=== PATIENT | male | born 1960 | race Caucasian/White ===

== ENCOUNTER 2020-06-12 22:40 | Emergency (ER) | payer SELFPAY ==
[~2020-06-12] VITALS: Ht 182.9 cm; Wt 87.5 kg
[2020-06-12 22:54] VITALS: BP 162/73
--- NOTE | 2020-06-12 23:03 | NUR ---
PT AMBULATED TO ER BED 01
--- NOTE | 2020-06-12 23:06 | NUR ---
attempt 3x to get IVL pt is hardstick. Hl est g22 on pt rtac infusing well. IVF started. CXR done. medical technologist called to draw bld.
[2020-06-12] MEDS ORDERED: NACL 0.9% 1,000 ML IV ONE (23:10)
--- NOTE | 2020-06-12 23:42 | NUR ---
RECEIVED REPORT FROM LUNCH COVERAGE, ALEXANDER YEH.
--- NOTE | 2020-06-12 23:46 | NUR ---
LAB AT BEDSIDE
[2020-06-13] LABS: BASOPHILS # (AUTO) 0.1 K/uL (0.00-0.22); BASOPHILS % (AUTO) 0.8 % (0.0-2.0); EOSINOPHILS % (AUTO) 0.5 % (0.0-4.0); HEMATOCRIT 43.3 % (36-52); LYMPHOCYTES # (AUTO) 1.6 K/uL (2.0-11.5); LYMPHOCYTES % (AUTO) 19.7 % (20.5-51.1); MEAN CORPUSCULAR HEMOGLOBIN 32 pg (27-31); MEAN CORPUSCULAR HGB CONC 35 g/dL (33-37); MEAN CORPUSCULAR VOLUME 92.4 fL (80-94); MONOCYTES # (AUTO) 0.6 K/uL (0.8-1.0); MONOCYTES % (AUTO) 7.1 % (1.7-9.3); NEUTROPHILS # (AUTO) 5.7 K/uL (1.8-7.7); NEUTROPHILS % (AUTO) 71.9 % (42.2-75.2); PLATELET COUNT (AUTO) 172 K/uL (140-450); RED BLOOD CELL COUNT(AUTO) 4.69 MIL/uL (4.20-6.10); RED CELL DISTRIBUTION WIDTH 12.4 % (11.6-13.7)
[2020-06-13 00:43] LABS: ALBUMIN 3.4 g/dL (3.4-5.0); ANION GAP 17.8 (8-16); CARBON DIOXIDE 22.6 mmol/L (21-32); CREATININE 1.1 mg/dL (0.6-1.3); POTASSIUM 4.4 mmol/L (3.5-5.1); TOTAL BILIRUBIN 0.8 mg/dL (0.0-1.0)
[2020-06-13] MEDS ORDERED: INSULIN REGULAR, HUMAN 100 UNIT/ML VIAL IVP ONE ×3 (01:05→02:50)
--- NOTE | 2020-06-13 01:29 | NUR ---
PT GIVEN TUNA SANDWICH AND ICE WATER
[2020-06-13 02:58] VITALS: BP 163/94
--- NOTE | 2020-06-13 02:59 | NUR ---
Patient discharged with v/s stable. Written and verbal after care instructions given and explained. Patient verbalized understanding. Ambulatory with steady gait. All questions addressed prior to discharge. Advised to follow up with PMD.
== END 2020-06-13 02:59 | disposition home or self-care (01) ==
LOC: MED 22:40
DX: E11.65 Type 2 diabetes mellitus with hyperglycemia (principal); F15.10 Other stimulant abuse, uncomplicated; F12.90 Cannabis use, unspecified, uncomplicated
CPT/HCPCS: 36415; 36600; 71045; 80053; 82803; 85025; 96361; 96374; 96375; 96376; 99284; J1815; J7030

== ENCOUNTER 2020-06-18 10:00 | Inpatient (IN) | payer MEDICAID ==
[~2020-06-18] VITALS: Ht 182.9 cm; Wt 86.2 kg
[2020-06-18 10:02] VITALS: BP 133/95
[2020-06-18] MEDS ORDERED: NACL 0.9% 1,000 ML IV ONE (10:20)
--- NOTE | 2020-06-18 10:39 | NUR ---
59 YO MALE C/O HYPERGLYCEMIA SINCE [place]. SEEN HERE 5 DAYS AGO SAME S/S. BLOOD SUGAR 481 AT THIS TIME. RUN OUT OF INSULIN 1 MONTH. MED HX: DM
--- NOTE | 2020-06-18 10:40 | NUR ---
SUPERVISOR COLD ROLLING [facility]O LABS AND TAKEN TO LAB
--- NOTE | 2020-06-18 10:45 | NUR ---
EMT PERFORMING EKG AT THIS TIME
[2020-06-18 10:52] LABS: APPEARANCE,URINE CLEAR (CLEAR); BILIRUBIN,URINE NEGATIVE (NEGATIVE); BLOOD, URINE NEGATIVE (NEGATIVE); COLOR,URINE YELLOW (YELLOW); LEUKOCYTE ESTERASE ,URINE NEGATIVE (NEGATIVE); NITRITE, URINE NEGATIVE (NEGATIVE); UGLUCOSE 3+ (NEGATIVE)
[2020-06-18 10:52] LABS: BASOPHILS # (AUTO) 0.1 K/uL (0.00-0.22); BASOPHILS % (AUTO) 0.6 % (0.0-2.0); EOSINOPHILS # (AUTO) 0.1 K/uL (0-0.4); EOSINOPHILS % (AUTO) 0.7 % (0.0-4.0); HEMATOCRIT 48.8 % (36-52); HEMOGLOBIN 17.3 g/dL (12.0-18.0); LYMPHOCYTES # (AUTO) 1.5 K/uL (2.0-11.5); LYMPHOCYTES % (AUTO) 17.5 % (20.5-51.1); MEAN CORPUSCULAR HEMOGLOBIN 33 pg (27-31); MEAN CORPUSCULAR HGB CONC 36 g/dL (33-37); MEAN CORPUSCULAR VOLUME 92.6 fL (80-94); MONOCYTES # (AUTO) 0.5 K/uL (0.8-1.0); MONOCYTES % (AUTO) 5.6 % (1.7-9.3); NEUTROPHILS # (AUTO) 6.6 K/uL (1.8-7.7); NEUTROPHILS % (AUTO) 75.6 % (42.2-75.2); PLATELET COUNT (AUTO) 170 K/uL (140-450); RED BLOOD CELL COUNT(AUTO) 5.27 MIL/uL (4.20-6.10); RED CELL DISTRIBUTION WIDTH 12.3 % (11.6-13.7); WHITE BLOOD COUNT (AUTO) 8.7 K/uL (4.8-10.8)
[2020-06-18 11:14] LABS: ALBUMIN 3.9 g/dL (3.4-5.0); ANION GAP 18.1 (8-16); CARBON DIOXIDE 22.5 mmol/L (21-32); POTASSIUM 4.6 mmol/L (3.5-5.1); TOTAL BILIRUBIN 1.6 mg/dL (0.0-1.0)
[2020-06-18] MEDS ORDERED: INSULIN REGULAR, HUMAN 100 UNIT/ML VIAL IVP ONE (11:25)
[2020-06-18] MEDS: NACL 0.9% 1,000 ML IV SCH ×3 (11:43→21:01)
[2020-06-18] MEDS ORDERED: DOCUSATE SODIUM 100 MG GELCAP PO PRN (11:45)
[2020-06-18] MEDS ORDERED: ONDANSETRON 4 MG/2 ML VIAL IM/IVP PRN (11:45)
[2020-06-18] MEDS ORDERED: ZOLPIDEM 5 MG TAB PO PRN (11:45)
[2020-06-18] MEDS ORDERED: POTASSIUM CHLORIDE 10 MEQ TABER PO PRN (11:45)
[2020-06-18] MEDS ORDERED: ACETAMINOPHEN 325 MG TAB PO PRN (11:45)
[2020-06-18] MEDS ORDERED: guaiFENesin DM 200/20 MG-10 ML 10 ML UDC PO PRN (11:45)
[2020-06-18 12:15] LABS: CHOL/HDL RATIO 2.8 (1-4.5); FREE T4 (FREE THYROXINE) 1.49 ng/dL (0.76-1.46); MAGNESIUM 1.9 mg/dL (1.8-2.4); PHOSPHORUS 3.9 mg/dL (2.5-4.9); THYROID STIMULATING HORMONE 0.48 uIU/mL (0.34-3.74)
[2020-06-18] MEDS ORDERED: DEXTROSE 50% 50 ML SYR IVP PRN (12:15)
[2020-06-18] MEDS: glipiZIDE ER 5 MG TABER PO SCH (12:15)
[2020-06-18] MEDS: metFORMIN 500 MG TAB PO SCH ×2 (12:30→17:30)
[2020-06-18 12:33] LABS: PROTHROMBIN TIME 10.1 secs (10.8-13.4)
--- NOTE | 2020-06-18 12:58 | NUR ---
Patient will be admitted to care of DR SANTOS. Admited to M/S. Will go to room 106A. Belongings list completed. Report to RAO ULLOA.
[2020-06-18 13:00] VITALS: BP 145/74
--- NOTE | 2020-06-18 13:00 | NUR ---
RECEIVED BEDSIDE REPORT FROM ED NURSE. PT RESTING IN BED. ABLE TO MAKE NEEDS KNOWN. RESPIRATIONS EVEN AND UNLABORED WITH NO SOB OR RESPIRATORY DISTRESS. SKIN WARM AND DRY TO TOUCH. IV SITE IN R WRIST 24G IS CLEAN, DRY, AND INTACT. MRSA SWAB COLLECTED AND SENT TO LAB. SAFETY MEASURES IN PLACE. WILL CONTINUE TO MONITOR
--- NOTE | 2020-06-18 13:45 | NUR ---
ADMINISTERED SCHED MED PRESCRIBED PER MD ORDER. PT TOLERATED WELL. MEDICATION EDUCATION PERFORMED. PT VERBALIZED UNDERSTANDING. SAFETY MEASURES IN PLACE. WILL CONTINUE TO MONITOR
--- NOTE | 2020-06-18 15:30 | NUR ---
PT CALLED AND ASKED FOR A SNACK. GAVE PATIENT SUGAR FREE JELLO. PT TOLERATED WELL. SAFETY MEASURES IN PLACE. WILL CONTINUE TO MONITOR
[2020-06-18 16:00] VITALS: BP 129/90
--- NOTE | 2020-06-18 16:15 | NUR ---
OBTAINED RANDOM SODIUM URINE PRESCRIBED PER MD ORDER. SPECIMEN SENT TO LAB. PT TOLERATED WELL. SAFETY MEASURE IN PLACE WILL CONTINUE TO MONITOR. Addendum: 06/18/20 at 1800 by Araceli Torres RN WRONG ENTRY. DISREGARD NOTE
--- NOTE | 2020-06-18 16:30 | NUR ---
PT BLOOD SUGAR IS 268. PRN INSULIN WILL BE ADMINISTERED PRESCRIBED PER MD ORDER. SAFETY MEASURES IN PLACE. WILL CONTINUE TO MONITOR
[2020-06-18 17:10] LABS: BARBITURATE, URINE NEGATIVE ng/ml (NEG <=200); BENZODIAZEPINE, URINE NEGATIVE ng/mL (NEG <=200); CANNABINOID, URINE POSITIVE ng/mL (NEG <=50); COCAINE, URINE NEGATIVE ng/mL (NEG <=300); OPIATE, URINE NEGATIVE ng/mL (NEG <=2000); PHENCYCLIDINE SCREEN,URINE NEGATIVE ng/mL (NEG <=25)
[2020-06-18] MEDS: BLOOD GLUCOSE MONITORING 1 DEV DEV FS SCH ×2 (17:28→20:33)
[2020-06-18] MEDS: INSULIN LISPRO SLIDING SCALE 100 UNITS/ML VIAL SUBQ PRN ×2 (17:30→20:36)
--- NOTE | 2020-06-18 17:30 | NUR ---
ADMINISTERED SCHED MED PRESCRIBED PER MD ORDER. PT TOLERATED WELL. MEDICATION EDUCATION PERFORMED. PT VERBALIZED UNDERSTANDING. SAFETY MEASURES IN PLACE. WILL CONTINUE TO MONITOR
--- NOTE | 2020-06-18 19:10 | NUR ---
RECEIVED BEDSIDE REPORT FROM DAY SHIFT NURSE FOR CONTINUITY OF CARE. PLAN OF CARE WAS DISCUSSED. PT IS A&O X 4. AWAKE AND ALERT. LAYING IN SUPINE POSITION. ON RA, BREATHING IS UNLABORED. LUNG SOUNDS ARE CLEAR IN ALL LOBES BILATERALLY. BOWEL SOUNDS ARE PRESENT IN ALL QUADRANTS. SKIN IS WARM, DRY, AND INTACT. LAST BM WAS 06/18/20 PER DAY SHIFT NURSE. IV IS PATENT AND INTACT. IV IS AT THE RIGHT WRIST 24 GAUGE RUNNING NS AT 135 ML PER HOUR PER ORDER. PT IS STABLE AT THIS TIME. BED IS IN THE LOWEST POSITION AND CALL LIGHT IS WITHIN REACH.
--- NOTE | 2020-06-18 21:00 | NUR ---
BS READING WAS 313 AND PT RECEIVED 8 UNITS OF HUMALOG PER SLIDING SCALE. PT ALSO RECEIVED SUGAR FREE SNACKS REQUESTED. PT IS AWAKE AND STABLE AT THIS TIME.
--- NOTE | 2020-06-18 23:00 | NUR ---
PT IS ASLEEP. IV FLUIDS ARE RUNNING AT 135 ML PER HOUR PER ORDER. IV IS PATENT AND INTACT. CHEST RISE AND FALL IS SYMMETRICAL. NO DISTRESS NOTED.
[2020-06-19] VITALS: BP 148/97
--- NOTE | 2020-06-19 01:25 | NUR ---
PT IS SITTING AT BEDSIDE, WATCHING TV ON CELL PHONE. NO COMPLAINTS FROM THE PT. NO SIGNS OF HYPERGLYCEMIA. PT IS COMFORTABLE AND ALL NEEDS ARE MET.
[2020-06-19] MEDS: HYDROcodone/APAP 7.5/325 MG 1 TAB PO PRN (03:17)
--- NOTE | 2020-06-19 03:17 | NUR ---
PT WAS COMPLAINING OF PAIN IN THE LOWER EXTREMITIES WITH AN ACHING FEELING. PAIN LEVEL WAS 5/10. PT RECEIVED NORCO PRN. WILL MONITOR PAIN.
--- NOTE | 2020-06-19 04:15 | NUR ---
ROUNDED ON PT TO REASSESS PAIN. PT IS ASLEEP. NO PAIN AT THIS TIME. IV FLUIDS ARE RUNNING. CALL LIGHT IS WITHIN REACH.
[2020-06-19] MEDS: NACL 0.9% 1,000 ML IV SCH ×2 (04:26→17:28)
[2020-06-19] MEDS: BLOOD GLUCOSE MONITORING 1 DEV DEV FS SCH ×4 (06:00→21:39)
[2020-06-19 06:06] LABS: BASOPHILS % (AUTO) 0.5 % (0.0-2.0); EOSINOPHILS # (AUTO) 0.1 K/uL (0-0.4); EOSINOPHILS % (AUTO) 1.2 % (0.0-4.0); HEMATOCRIT 44.4 % (36-52); HEMOGLOBIN 15.7 g/dL (12.0-18.0); LYMPHOCYTES # (AUTO) 1.5 K/uL (2.0-11.5); LYMPHOCYTES % (AUTO) 20.2 % (20.5-51.1); MEAN CORPUSCULAR HEMOGLOBIN 33 pg (27-31); MEAN CORPUSCULAR HGB CONC 35 g/dL (33-37); MEAN CORPUSCULAR VOLUME 92.4 fL (80-94); MONOCYTES # (AUTO) 0.4 K/uL (0.8-1.0); MONOCYTES % (AUTO) 5.6 % (1.7-9.3); NEUTROPHILS # (AUTO) 5.4 K/uL (1.8-7.7); NEUTROPHILS % (AUTO) 72.5 % (42.2-75.2); PLATELET COUNT (AUTO) 158 K/uL (140-450); RED BLOOD CELL COUNT(AUTO) 4.81 MIL/uL (4.20-6.10); RED CELL DISTRIBUTION WIDTH 12.5 % (11.6-13.7); WHITE BLOOD COUNT (AUTO) 7.4 K/uL (4.8-10.8)
[2020-06-19] MEDS: INSULIN LISPRO SLIDING SCALE 100 UNITS/ML VIAL SUBQ PRN ×5 (06:19→21:40)
--- NOTE | 2020-06-19 06:21 | NUR ---
BS READING WAS 282. HUMALOG PER SLIDING SCALE WAS ADMINISTERED, 6 UNITS. PT IS BACK TO SLEEP AT THIS TIME.
[2020-06-19 07:05] LABS: ANION GAP 16.2 (8-16); CARBON DIOXIDE 22.1 mmol/L (21-32); CREATININE 0.8 mg/dL (0.6-1.3); POTASSIUM 4.3 mmol/L (3.5-5.1)
--- NOTE | 2020-06-19 07:10 | NUR ---
ENDORSED PT TO DAY SHIFT NURSE FOR CONTINUITY OF CARE. PT IS STABLE AT THIS TIME. PLAN OF CARE WAS DISCUSSED.
--- NOTE | 2020-06-19 07:15 | NUR ---
RECEIVED BEDSIDE REPORT FROM NIGHTSHIFT NURSE. PT RESTING IN BED. ABLE TO MAKE NEEDS KNOWN. RESPIRATIONS EVEN AND UNLABORED WITH NO SOB OR RESPIRATORY DISTRESS. SKIN WARM AND DRY TO TOUCH. IV SITE IN R WRIST 24G IS CLEAN, DRY, AND INTACT. SAFETY MEASURES IN PLACE. WILL CONTINUE TO MONITOR
[2020-06-19 08:00] VITALS: BP 139/74
[2020-06-19] MEDS: glipiZIDE ER 5 MG TABER PO SCH (08:00)
[2020-06-19] MEDS: metFORMIN 500 MG TAB PO SCH ×2 (08:00→17:06)
[2020-06-19] MEDS ORDERED: INSULIN LANTUS 100 UNITS/ML 10 ML VIAL SUBQ SCH (09:00)
--- NOTE | 2020-06-19 09:09 | NUR ---
PATIENT HAS BEEN SCREENED AND CATEGORIZED MODERATE NUTRITION RISK. PATIENT WILL BE SEEN WITHIN 3-5 DAYS OF ADMISSION. 06/20/20 06/22/[address]
[2020-06-19] MEDS: PANTOPRAZOLE 40 MG TABEC PO SCH (09:12)
--- NOTE | 2020-06-19 09:40 | NUR ---
PT BLOOD SUGAR IS 450. PAGED DR. SANTOS AND WAS VERBALLY TOLD TO GIVE 12 UNITS OF HUMALOG ALONG WITH SCHED LANTUS. ADMINISTERED SCHED MED PRESCRIBED PER MD ORDER. PT TOLERATED WELL. MEDICATION EDUCATION PERFORMED. PT VERBALIZED UNDERSTANDING. SAFETY MEASURES IN PLACE. WILL CONTINUE TO MONITOR
--- NOTE | 2020-06-19 11:30 | NUR ---
PT BLOOD SUGAR IS 318. PRN HUMALOG WILL BE ADMINISTERED WITH NEXT MEAL. SAFETY MEASURES IN PLACE. WILL CONTINUE TO MONITOR
--- NOTE | 2020-06-19 11:38 | NUR ---
ADMINISTERED SCHED MED PRESCRIBED PER MD ORDER. PT TOLERATED WELL. MEDICATION EDUCATION PERFORMED. PT VERBALIZED UNDERSTANDING. SAFETY MEASURES IN PLACE. WILL CONTINUE TO MONITOR
--- NOTE | 2020-06-19 11:43 | NUR ---
INFANT BABYSITTER NOTE: Patient's Orientation Person Situation Place Time Information Provided By PATIENT Comments SW CONTACTED PATIENT'S ROOM PHONE AND COMPLETED ASSESSMENT TELEPHONICALLY. Wool Shearing Supervisor, Realtionship and Phone Number GAIL PAVON FRIEND [phone] (CORRECTION FROM FACE SHEET) PING GUY DAUGHTER [phone] Healthcare Power of [employer] Report Developer No Does Patient Have a POLST No Identifying Problems No Social Work Triggers Is A Social Work Consult Needed No Mandate Report Filed No Explanation Of Identifying Problems PATIENT IS A 59-YEAR-OLD MALE ADMITTED FOR HYPOGLYCEMIA. PATIENT HAS PMHX OF DIABETES. Admitted From Home Pre-Admission Level Of Functioning Status Independent/Ambulatory Prior Resources/Services Used In Last 12 Months No Prior Resources Used Prior DME No Prior DME Used Living Situation Lives With Friend/Other House Patient Had Caregiver No Home Support No Caregiver Issues Financial Issues No Known Financial Issue Referral To The Financial Counselor Needed No Factors/Needs No D/C Needs Identified Pt/Rep Participated In Discharge Plan Yes Patient/Family Agress With Discharge Plan Yes Discharge Plan Comments TENTATIVE DISCHARGE PLAN IS FOR PATIENT TO GO TO DAUGHTER PING GUY'S HOUSE IN [place] AND LEAVE FOR [place] THEREAFTER. DC Plan Status Initiated
--- NOTE | 2020-06-19 12:29 | NUR ---
DC PLANNING 59 YRS OLD MALE PATIENT WAS ADMITTED FROM HOME WITH A DX OF HYPERGLYCEMIA , UNCONTROLLED DM BLOOD GLUCOSE WAS 474 ON ADMISSION. PT HAS A HX OF DM. ADMINISTERED REGULAR INSULIN AND CONTINUE HOME MEDS LANTUS INSULIN . ON IVF FOR HYDRATION. DC PLAN TO EDUCATE PATIENT WITH DIABETIC EDUCATION AND MEDICATION. DC PLAN TO GO HOME WHEN STABLE CM TO FOLLOW . Addendum: 06/22/20 at 09 by Kathy Lee CM CONTACTED PATIENTS INSURANCE [employer] [facility] [phone]. SPOKE CONDUIT WORKER DOMINIQUE. PATIENTS PCP IS DR. ARIAS [phone]. [facility]: [id number] [place] [id number] Addendum: 06/22/20 at 0916 by Kathy Lee CM PROVIDED PATIENT WITH PCP INFORMATION Addendum: 06/22/20 at 1127 by Kathy Lee CM CALLED TO SCHEDULE PATIENT A FOLLOW UP APPOINTMENT WITH PCP DR. ARIAS. THIS IS A NEW PATIENT SO THEY ARE ASKING FOR HIM ONCE HE RETURNS TO [place] TO STOP BY THE OFFICE TO REGISTER BEFORE THEY CAN SCHEDULE HIM AN APPOINTMENT
--- NOTE | 2020-06-19 12:40 | NUR ---
PT CALLED AND SAID THAT IV PUMP WAS BEEPING. IV SITE IN R WRIST 24G IS NO LONGER WORKING PROPERLY. NOT ABLE TO FLUSH OR GET BLOOD RETURN. NEW IV STARTED IN LFA 24G IS CLEAN DRY, AND INTACT. SAFETY MEASURES IN PLACE. WILL CONTINUE TO MONITOR
--- NOTE | 2020-06-19 13:44 | NUR ---
HOURLY ROUNDING PT RESTING IN BED. ABLE TO MAKE NEEDS KNOWN. RESPIRATIONS EVEN AND UNLABORED WITH NO SOB OR RESPIRATORY DISTRESS. SKIN WARM AND DRY TO TOUCH. SAFETY MEASURES IN PLACE. WILL CONTINUE TO MONITOR
--- NOTE | 2020-06-19 15:38 | NUR ---
HOURLY ROUNDING. PT RESTING IN BED. ABLE TO MAKE NEEDS KNOWN. RESPIRATIONS EVEN AND UNLABORED WITH NO SOB OR RESPIRATORY DISTRESS. SKIN WARM AND DRY TO TOUCH. SAFETY MEASURES IN PLACE. WILL CONTINUE TO MONITOR
[2020-06-19 16:00] VITALS: BP 143/80
--- NOTE | 2020-06-19 16:30 | NUR ---
PT BLOOD SUGAR IS 243. PRN INSULIN WILL BE ADMINISTERED WITH NEXT MEAL. SAFETY MEASURES IN PLACE. WILL CONTINUE TO MONITOR
--- NOTE | 2020-06-19 17:15 | NUR ---
ADMINISTERED SCHED MED PRESCRIBED PER MD ORDER. PT TOLERATED WELL. MEDICATION EDUCATION PERFORMED. PT VERBALIZED UNDERSTANDING. SAFETY MEASURES IN PLACE. WILL CONTINUE TO MONITOR
--- NOTE | 2020-06-19 19:10 | NUR ---
ENDORSED AT BEDSIDE TO NIGHTSHIFT NURSE FOR CONTINUITY OF CARE. PT IS STABLE
--- NOTE | 2020-06-20 | NUR ---
VSS. PT FOUND LYING ON SIDE ON FLOOR NEXT TO BED. REPORTS HE WAS STANDING UP TO URINATE IN URINAL WHEN HE FELT HIS KNEES BUCKLE FROM UNDER HIM. REPORTS LT THUMB NUMBNESS/WEAKNESS. VISION CHANGES REPORTED FLASHING BRIGHT STARS. WILL CONT TO MONITOR PT STATUS. MD NOTIFIED. OBTAINED ORDERS. TELE MONITOR NSR RATE 68. CT SCAN HEAD STAT ORDERED. SENT TO CT SCAN ORDERED.
--- NOTE | 2020-06-20 00:19 | NUR ---
PT RETURNED FROM CT HEAD W/OUT CONTRAST STAT. PT NO LONGER REPORTING LT THUMB NUMBNESS. VISION CHANGES STILL PRESENT BUT IMPROVING. VSS. NO H/A. NO N/V. SR ON TELE. WILL CONT TO MONITOR PT STATUS.
[2020-06-20] MEDS: NACL 0.9% 1,000 ML IV SCH ×4 (00:41→23:31)
[2020-06-20 00:53] VITALS: BP 154/99
[2020-06-20 06:24] LABS: ANION GAP 16.6 (8-16); CARBON DIOXIDE 22.3 mmol/L (21-32); CREATININE 0.8 mg/dL (0.6-1.3); POTASSIUM 3.9 mmol/L (3.5-5.1)
[2020-06-20 06:30] LABS: BASOPHILS % (AUTO) 0.2 % (0.0-2.0); EOSINOPHILS # (AUTO) 0.1 K/uL (0-0.4); EOSINOPHILS % (AUTO) 0.7 % (0.0-4.0); HEMATOCRIT 46.2 % (36-52); HEMOGLOBIN 16.1 g/dL (12.0-18.0); LYMPHOCYTES # (AUTO) 1.3 K/uL (2.0-11.5); LYMPHOCYTES % (AUTO) 15.6 % (20.5-51.1); MEAN CORPUSCULAR HEMOGLOBIN 33 pg (27-31); MEAN CORPUSCULAR HGB CONC 35 g/dL (33-37); MEAN CORPUSCULAR VOLUME 93.2 fL (80-94); MONOCYTES # (AUTO) 0.5 K/uL (0.8-1.0); NEUTROPHILS # (AUTO) 6.7 K/uL (1.8-7.7); NEUTROPHILS % (AUTO) 77.5 % (42.2-75.2); PLATELET COUNT (AUTO) 160 K/uL (140-450); RED BLOOD CELL COUNT(AUTO) 4.96 MIL/uL (4.20-6.10); RED CELL DISTRIBUTION WIDTH 12.3 % (11.6-13.7); WHITE BLOOD COUNT (AUTO) 8.6 K/uL (4.8-10.8)
[2020-06-20] MEDS: INSULIN LISPRO SLIDING SCALE 100 UNITS/ML VIAL SUBQ PRN ×4 (06:34→21:34)
[2020-06-20] MEDS: BLOOD GLUCOSE MONITORING 1 DEV DEV FS SCH ×4 (06:34→21:29)
--- NOTE | 2020-06-20 07:10 | NUR ---
RECEIVED REPORT FROM PM RNKRIS. PT C/O: HYPERGLYCEMIA. DX: UNCONTROLLED DM AND HYPERGLYCEMIA. HX: CM, HTN. NKA. FULL CODE. A&OX4. LUNG SOUNDS CLEAR. NORMAL SINUS RHYTHM. LT FA 24G RUNNING NS 145. NKA. DIET: CCHO 60G. RA. SKIN IS INTACT. 629 BS: 257, 6 UNITS GIVEN. PLAN: DIGITAL FORENSICS EXAMINER CONSULT, MONITOR BS.
[2020-06-20 08:00] VITALS: BP 134/86
[2020-06-20] MEDS: PANTOPRAZOLE 40 MG TABEC PO SCH (08:46)
[2020-06-20] MEDS: glipiZIDE ER 5 MG TABER PO SCH (08:46)
[2020-06-20] MEDS: metFORMIN 500 MG TAB PO SCH ×2 (08:46→17:28)
--- NOTE | 2020-06-20 08:50 | NUR ---
GAVE PAIN MED. PTS PAIN WAS 7/10.
[2020-06-20] MEDS: HYDROcodone/APAP 7.5/325 MG 1 TAB PO PRN (08:59)
[2020-06-20] MEDS: INSULIN LANTUS 100 UNITS/ML 10 ML VIAL SUBQ SCH (09:00)
--- NOTE | 2020-06-20 09:00 | NUR ---
PASSED MEDICATIONS TO PT. PT TOLERATED WELL
--- NOTE | 2020-06-20 11:30 | NUR ---
BLOOD SUGAR: 320, [address] PT ON BED ALARM. WRIST BAND APPLIED FOR FALL PREVENTION
[2020-06-20 16:00] VITALS: BP 165/98
--- NOTE | 2020-06-20 16:30 | NUR ---
BLOOD SUGAR 224, 4 UNITS GIVEN
--- NOTE | 2020-06-20 17:30 | NUR ---
NEW IV PLACEMENT. 20G LT UPPER ARM
--- NOTE | 2020-06-20 19:14 | NUR ---
TRANSFER OF CARE TO THE PM RNGUILHERME. PT IS STABLE. VS STABLE. NO SIGNS OF DISTRESS.
[2020-06-20] MEDS: GABAPENTIN 100 MG CAP PO SCH (21:29)
[2020-06-21] VITALS: BP 128/85
[2020-06-21] MEDS: NACL 0.9% 1,000 ML IV SCH ×3 (05:50→22:13)
[2020-06-21 06:42] LABS: BASOPHILS % (AUTO) 0.7 % (0.0-2.0); EOSINOPHILS # (AUTO) 0.1 K/uL (0-0.4); EOSINOPHILS % (AUTO) 1.8 % (0.0-4.0); HEMATOCRIT 43.5 % (36-52); HEMOGLOBIN 15.2 g/dL (12.0-18.0); LYMPHOCYTES # (AUTO) 1.6 K/uL (2.0-11.5); LYMPHOCYTES % (AUTO) 25.6 % (20.5-51.1); MEAN CORPUSCULAR HEMOGLOBIN 32 pg (27-31); MEAN CORPUSCULAR HGB CONC 35 g/dL (33-37); MEAN CORPUSCULAR VOLUME 92.3 fL (80-94); MONOCYTES # (AUTO) 0.5 K/uL (0.8-1.0); MONOCYTES % (AUTO) 8.2 % (1.7-9.3); NEUTROPHILS # (AUTO) 3.9 K/uL (1.8-7.7); NEUTROPHILS % (AUTO) 63.7 % (42.2-75.2); PLATELET COUNT (AUTO) 161 K/uL (140-450); RED BLOOD CELL COUNT(AUTO) 4.71 MIL/uL (4.20-6.10); RED CELL DISTRIBUTION WIDTH 12.3 % (11.6-13.7); WHITE BLOOD COUNT (AUTO) 6.2 K/uL (4.8-10.8)
[2020-06-21] MEDS: BLOOD GLUCOSE MONITORING 1 DEV DEV FS SCH ×4 (06:43→21:26)
[2020-06-21] MEDS: INSULIN LISPRO SLIDING SCALE 100 UNITS/ML VIAL SUBQ PRN ×4 (06:44→21:28)
[2020-06-21 07:05] LABS: ANION GAP 13.4 (8-16); CARBON DIOXIDE 24.3 mmol/L (21-32); CREATININE 0.7 mg/dL (0.6-1.3); POTASSIUM 3.7 mmol/L (3.5-5.1)
[2020-06-21] MEDS: glipiZIDE ER 5 MG TABER PO SCH (07:34)
[2020-06-21] MEDS: metFORMIN 500 MG TAB PO SCH ×4 (07:34→16:51)
[2020-06-21 08:11] VITALS: BP 124/82
[2020-06-21] MEDS ORDERED: INSULIN LANTUS 100 UNITS/ML 10 ML VIAL SUBQ SCH ×2 (09:00→17:00)
[2020-06-21] MEDS: INSULIN LANTUS 100 UNITS/ML 10 ML VIAL SUBQ SCH (09:04)
[2020-06-21] MEDS: PANTOPRAZOLE 40 MG TABEC PO SCH (09:05)
[2020-06-21 16:25] VITALS: BP 133/93
--- NOTE | 2020-06-21 18:34 | NUR ---
CHANGES ON DM REGIMEN STARTED TODAY. PATIENT VERBALLY EDUCATED ON WAYS TO MANAGE DIABETES, VERBALIZED UNDERSTANDING. PER PATIENT " I KNOW NOW HOW TO GET PCP, I HAVE TO CALL MY INSURANCE AND THEY WILL SEND ME LISTS OF DOCTORS FOR ME TO CHOOSE." ANTICIPATE DC TOMORROW IF BLOOD SUGAR IS CONTROLLED.
--- NOTE | 2020-06-21 19:05 | NUR ---
RECD. RESTING IN BED, AWAKE, A/OX4. WATCHING TV. RESPIRATION EVEN AND UNLABORED. IV OF NS AT 135 ML/HR INFUSING, LEFT FOREARM G22. INDEPENDENT, ABLE TO VERBALIZED NEEDS. USES THE URINAL. PLAN OF CARE FOR THE SHIFT DISCUSSED. VERBALIZED UNDERSTANDING. DENIES PAIN 0/10.
--- NOTE | 2020-06-21 20:30 | NUR ---
SLEEPING COMFORTABLY IN BED.
[2020-06-21] MEDS: GABAPENTIN 100 MG CAP PO SCH (21:25)
--- NOTE | 2020-06-21 21:26 | NUR ---
SNACK GIVEN FOR THE NIGHT, ATE 100%.
--- NOTE | 2020-06-21 22:20 | NUR ---
SITTING ON BED, WATCHING TV.
--- NOTE | 2020-06-21 22:25 | NUR ---
ENDORSED TO RAO PASTRANA FOR CONTINUITY OF CARE.
--- NOTE | 2020-06-21 22:30 | NUR ---
RECEIVED REPORT FROM LETITIA ROCHA AT BEDSIDE FOR CONTINUITY OF CARE, PT IN BED ASLEEP NO S/S OF PAIN OR DISTRESS NOTED IV SITE INTACT AND RUNNING FLUIDS ORDERED.
[2020-06-22] VITALS: BP 140/76
--- NOTE | 2020-06-22 04:00 | NUR ---
PT IN BED ASLEEP BUT AROUSABLE TO NAME AND LIGHT TOUCH. IV SITE INTACT AND RUNNING NORMAL SALINE AT 135. V/S FOLLOWS: T 97.0 P 70 R 20 B/P 141/95 02 98% ON ROOM AIR. ALL FALLS PRECAUTIONS IN PLACE AND ALL REQUESTED NEEDS ATTENDED.
[2020-06-22] MEDS: NACL 0.9% 1,000 ML IV SCH ×2 (04:43→12:08)
[2020-06-22] MEDS: INSULIN LISPRO SLIDING SCALE 100 UNITS/ML VIAL SUBQ PRN (06:46)
[2020-06-22] MEDS: BLOOD GLUCOSE MONITORING 1 DEV DEV FS SCH ×2 (06:49→11:53)
--- NOTE | 2020-06-22 07:20 | NUR ---
SHIFT REPORT RECEIVED FROM CHEMISTRY LABORATORY TECHNICIAN NURSE. PT IS AWAKE AND RESPONSIVE IN BED. IV IN PLACE. PT SAYS IS HUNGRY. VITAL SIGNS NORMAL PT ON ROOM AIR. LUNGS CLEAR. WILL CONTINUE TO MONITOR. CALL LIGHT IN REACH.
[2020-06-22] MEDS ORDERED: GABA-636 PO (07:45)
[2020-06-22] MEDS ORDERED: LANTUS SUBQ (07:45)
[2020-06-22] MEDS ORDERED: GLUXL5 PO (07:45)
[2020-06-22] MEDS ORDERED: PANT40EC28 PO (07:45)
[2020-06-22] MEDS ORDERED: METF500T PO (07:45)
[2020-06-22] MEDS ORDERED: ATOR20TA PO (07:48)
[2020-06-22] MEDS ORDERED: LISI5TAB18 PO (07:48)
[2020-06-22 08:00] VITALS: BP 135/92
[2020-06-22] MEDS ORDERED: glipiZIDE ER 5 MG TABER PO SCH (08:00)
[2020-06-22] MEDS: metFORMIN 500 MG TAB PO SCH ×2 (09:26→12:16)
[2020-06-22] MEDS: PANTOPRAZOLE 40 MG TABEC PO SCH (09:26)
[2020-06-22] MEDS: INSULIN LISPRO 100 UNITS/ML VIAL SUBQ SCH ×2 (09:28→12:21)
[2020-06-22] MEDS: INSULIN LANTUS 100 UNITS/ML 10 ML VIAL SUBQ SCH (09:29)
--- NOTE | 2020-06-22 09:30 | NUR ---
MORNING MEDS GIVEN TO PT . NOTED WITH BLOOD SUGAR OF 347. INSULIN LANTUS AND LISPRO GIVEN TO PT. NO DISTRESS NO COMPLAINS OF PAIN. IV IN PLACE. BED IN LOW POSITION. PT AWAKE AND COOPERATIVE. WILL CONTINUE TO MONITOR. CALL LIGHT IN REACH.
--- NOTE | 2020-06-22 12:00 | NUR ---
BLOOD SUGAR AT 268. INSULIN GIVEN. NO DISTRESS. WILL CONTINUE TO MONITOR.
--- NOTE | 2020-06-22 13:07 | NUR ---
PT WAS D/C TODAY TO HOME. PT DID NOT GET A RIDE HOME. GAVE HIM A BUS PASS.DISCHARGE INSTRUCTIONS GIVEN TO PT. MEDS SENT TO PHARMACY. SKIN INTACT. ID AND IV REMOVED. NO BLEEDING. MED INSTRUCTIONS GIVEN TO PT. PRESCRIPTION GIVEN TO PT. PT WILL F/U WITH PCP UPON D/C.PT STABLE AT D/C. NO COMPLAINS OF PAIN OR DISTRESS NOTED. TAKEN IN WHEEL CHAIR TO EXIT. PT WAS GIVEN SHIRT AND PANTS.
== END 2020-06-22 13:05 | disposition home or self-care (01) | DRG 420 ==
LOC: MED 10:00 → MTU 11:43
PROVIDERS: ADMIT Family Medicine; ATTEND Family Medicine
DX: E11.00 Type 2 diabetes mellitus with hyperosmolarity without nonketotic hyperglycemic-hyperosmolar coma (NKHHC) (principal); E87.1 Hypo-osmolality and hyponatremia; R74.0 Nonspecific elevation of levels of transaminase and lactic acid dehydrogenase [LDH]; R35.0 Frequency of micturition; Z72.0 Tobacco use; Z82.49 Family history of ischemic heart disease and other diseases of the circulatory system; G93.41 Metabolic encephalopathy; Z83.3 Family history of diabetes mellitus; Z91.19 Patient's noncompliance with other medical treatment and regimen; M51.86 Other intervertebral disc disorders, lumbar region; M85.80 Other specified disorders of bone density and structure, unspecified site
CPT/HCPCS: 36415; 36600; 70450; 71045; 72110; 80048; 80053; 80305; 81003; 82150; 82803; 82948; 83036; 83690; 83735; 83880; 84100; 84436; 84439; 84443; 84479; 84484; 85025; 85610; 85730; 87081; 93005; 96361; 96374; 97116; 97161-GP; 99285; J1815; J7030; J7060; Q0092